=== PATIENT | female | born 1980 | race Caucasian/White ===

== ENCOUNTER 2022-07-16 06:48 | Day surgery (SDC) | payer OTHER ==
[~2022-07-16] VITALS: Ht 167.6 cm; Wt 105.0 kg
--- NOTE | 2022-07-16 06:30 | NUR ---
PT ARRIVES WITH VOMITING AND C/O ABD PAIN, STATES "I AM IN [place], I HAVENT USED SINCE WEDNESDAY". TO AN ROOM WITH MOTHER AND DAUGHTER. DISCUSSEDD POC, PT AGREEABLE. ALL VALUABLES SENT WITH MOTHER.
--- NOTE | 2022-07-16 07:30 | NUR ---
UNABLE TO OBTAIN IV DUE TO HX OF IV DRUG USE. DR DALAL AUTHORIZED CENTRAL LINE INSERTION. PT AGREEABLE. DR HERNANDEZ AT BEDSIDE AND CENTRAL LINE INSERTED RT GROIN WITHOUT DIFFICULTY. LABS DRAWN AND PT MEDICATED.
--- NOTE | 2022-07-16 08:10 | NUR ---
pt with edema to bilateral hands and LE. pt has round scabbed sores of varying stages of healing to arms, stomach and legs. pt states it is "from injecting".
[2022-07-16 08:18] LABS: HEMATOCRIT 38.8 % (37.0-47.0); HEMOGLOBIN 13.3 g/dl (12.0-16.0); IMMATURE GRANULOCYTES 0.1 % (0.0-5.0); MEAN CELL VOLUME 86.4 fL CALC (80.0-100.0); MEAN CORPUSCULAR HGB 29.6 pG CALC (26.0-32.0); MEAN CORPUSCULAR HGB CONC 34.3 g/dL CAL (32.0-36.0); NEUT# 7.62 thou/uL (2.00-7.15); RED BLOOD COUNT 4.49 mill/uL (4.20-5.60); RED CELL DISTRI WIDTH 12.4 % (11.5-15.5)
[2022-07-16 08:47] LABS: ALBUMIN 4.5 g/dL (3.2-5.0); ALKALINE PHOSPHATASE 163 u/l (38-126); ANION GAP 11 (6-22 (CALC)); BILIRUBIN, TOTAL 0.5 mg/dL (0.0-1.4); BUN 13 mg/dL (7-17); BUN/CREATININE RATIO 19 (12-20 (CALC)); CARBON DIOXIDE 27 mmol/l (22-30); CHLORIDE 104 mmol/l (95-108); CREATININE 0.7 mg/dL (0.5-1.0); GFR FOR AFR.AMER. > 60 ML/MIN (>=60 (CALC)); GFR OTHER RACES > 60 ML/MIN (>=60 (CALC)); POTASSIUM 3.8 mmol/l (3.5-5.1); SGOT/AST 58 u/l (14-36); SODIUM 138 mmol/l (137-146); TOTAL PROTEIN 7.4 g/dL (6.3-8.2)
--- NOTE | 2022-07-16 09:20 | NUR ---
PT WITH YELLOW BILEOUS EMESIS, C/O ABD DISCOMFORT. DR LOPEZ NOTIFIED AND N/O RECEIVED.VSS.
--- NOTE | 2022-07-16 12:50 | NUR ---
Induction Note Patient to [facility] procedure room. Time out performed at 1250. Patient placed on monitors, Levar hugger, bilateral wrist restraints applied for ET tube protection. Versed 5mg given IV push at 1250. Rocoronium 10mg at 1251 ivp Propofol bolus of 160mg given at 1252 iv push. Succinylcholine 80mg given IV push at 1253. Smooth intubation with 7.5 ETT. Positive CO2. Positive Auscultation for air exchange. Patient placed on ventilator for spontaneous ventilation. Placed on Propofol IV drip at 1254. OG inserted. Positive air on auscultation. Positive gastric content. Stomach washed at this time. Naltrexone 50mg given via OG tube with Clonidine 0.3 mg given via OG Tube. OG clamped for 45 minutes. Will monitor patient for symptoms of withdrawal and adjust propfol accordingly.
--- NOTE | 2022-07-16 13:45 | NUR ---
OG open note OG open at this time. Gastric content draining into drainage bag. OG to drain for 45 minutes. Propofol will be titrated down based on patient.
--- NOTE | 2022-07-16 14:50 | NUR ---
OG close note Stomach washed at this time. Naltrexone 50 mg with Clonidine 0.2 mg via OG tube. OG will be clamped for 45 minutes.
--- NOTE | 2022-07-16 16:45 | NUR ---
OG close note Stomach washed at this time. Naltrexone 25 mg with Clonidine 0.2 mg via OG tube. OG will be clamped for 45 minutes.
[2022-07-16] MEDS ORDERED: CLONIDINE0.1 MG PO (17:41)
[2022-07-16] MEDS ORDERED: NALTREXONE50 MG PO (17:41)
[2022-07-16] MEDS ORDERED: KLONOPIN2 MG PO (17:42)
--- NOTE | 2022-07-16 18:52 | NUR ---
Extubation note Closing medications given Benadryl 50mg IV push, Decadron 10mg IV push,Magnesium 4 grams IV, Zofran 8mg IV push, Octreotide 100mcg SC. Stomach washed out prior to extubation. Suctioned gastric content. OG removed. Patient extubated. Propofol Discontinued. Wrist restraints removed. Levar hugger Removed. See [facility] Moderate sedate recovery record for further notes and assessment.
[2022-07-16 19:11] VITALS: BP 142/85
--- NOTE | 2022-07-16 19:11 | NUR ---
PATIENT RESTING IN BED WITH EYES CLOSED. NO SIGNS OF DISTRESS NOTED. NO SIGNS OF PAIN. BED REMAINS IN LOW POSITION. BED ALARM ACTIVE.
--- NOTE | 2022-07-16 19:20 | NUR ---
pt transported to [place] via stretcher with spontaneous respirations in no acute distress. vss. panda. bedside report to Anila Diego
[2022-07-16 22:29] VITALS: BP 143/76
--- NOTE | 2022-07-17 00:05 | NUR ---
PATIENT RESTING IN BED. IV ABT HANGING. NO COMPLAINTS VOICED AT THIS TIME. PATIENT DRINKING AND VOIDING WITHOUT DIFFICULTY. BED REMAINS IN LOW POSITION. BED ALARM ACTIVE.
[2022-07-17 03:52] VITALS: BP 98/59
--- NOTE | 2022-07-17 04:27 | NUR ---
RECEIVED PRN TORADOL FOR LOWER BACK PAIN. PATIENT TOLERTED WELL. NO OTHER COMPLAINTS VOICED. BED REMAINS IN LOW POSITION. CALL LIGHT IN REACH.
[2022-07-17 05:53] LABS: HEMATOCRIT 37.9 % (37.0-47.0); HEMOGLOBIN 13.3 g/dl (12.0-16.0); IMMATURE GRANULOCYTES 0.3 % (0.0-5.0); MEAN CELL VOLUME 85.7 fL CALC (80.0-100.0); MEAN CORPUSCULAR HGB 30.1 pG CALC (26.0-32.0); MEAN CORPUSCULAR HGB CONC 35.1 g/dL CAL (32.0-36.0); NEUT# 8.11 thou/uL (2.00-7.15); RED BLOOD COUNT 4.42 mill/uL (4.20-5.60); RED CELL DISTRI WIDTH 12.5 % (11.5-15.5)
[2022-07-17 06:00] LABS: ALBUMIN 4.1 g/dL (3.2-5.0); ALKALINE PHOSPHATASE 141 u/l (38-126); ANION GAP 14 (6-22 (CALC)); BILIRUBIN, TOTAL 0.6 mg/dL (0.0-1.4); BUN 10 mg/dL (7-17); BUN/CREATININE RATIO 15 (12-20 (CALC)); CARBON DIOXIDE 24 mmol/l (22-30); CHLORIDE 106 mmol/l (95-108); CREATININE 0.7 mg/dL (0.5-1.0); GFR FOR AFR.AMER. > 60 ML/MIN (>=60 (CALC)); GFR OTHER RACES > 60 ML/MIN (>=60 (CALC)); MAGNESIUM 2.7 mg/dL (1.6-2.3); POTASSIUM 3.6 mmol/l (3.5-5.1); SGOT/AST 41 u/l (14-36); SODIUM 140 mmol/l (137-146)
--- NOTE | 2022-07-17 07:00 | NUR ---
RECEIVE REPORT FROM SORAIDA ZELAYA.
[2022-07-17 07:17] VITALS: BP 120/59
--- NOTE | 2022-07-17 08:00 | NUR ---
PATIENT RESTING PLEASANT IN BED. ASSESSMENT HEAD-TO TOE COMPLETE. VITAL SIGN STABLE. PATIENT IS EDUCATED ABOUD MEDICATIONS AND NURSING PLAN FOR TODAY. PATIOENT REFER UNDERSTAND. SAFETY AND FALL PRECAUTIONS IN PLCA. SITTER AT BEDSIDE. CALL LIGHT WITHIN IN REACH.
[2022-07-17 08:18] VITALS: BP 120/59
--- NOTE | 2022-07-17 12:22 | NUR ---
PATIENT RESTING IN BED STABLE AT THIS TIME. MEDICARTIONS DONE.
== END 2022-07-17 15:30 | disposition home or self-care (01) | DRG 897 ==
LOC: ANR 06:48 → ANR-I 06:48 → ANR 09:00 → MS2 19:30 → ANR 07-17 15:30
PROVIDERS: ATTEND Anesthesiology
DX: F11.20 Opioid dependence, uncomplicated (principal)
CPT/HCPCS: J2354; S0164